=== PATIENT | female | born 1985 | race Caucasian/White ===

== ENCOUNTER 2018-10-22 18:17 | Inpatient (IN) ==
[2018-10-22 16:54] LABS: Basophils % 0.4 %; Eosinophils # 0.1 K/mcL (0.0-0.6); Eosinophils % 1.1 %; Hematocrit 34.8 % (35.3-44.9); Hemoglobin 11.2 g/dL (11.5-15.4); Immature Granulocytes % 0.9 % (0-4); Lymphocytes # 2.5 K/mcL (0.6-4.6); Lymphocytes % 22.6 %; Mean Corpuscular HGB Conc 32.2 g/dL (31.6-35.5); Mean Corpuscular Hemoglobin 28.2 pg (28.0-33.3); Mean Corpuscular Volume 87.7 fL (83.0-100.0); Mean Platelet Volume 11.3 fL (9.4-12.4); Monocytes # 0.9 K/mcL (0.0-1.3); Monocytes % 7.7 %; Neutrophils # 7.6 K/mcL (1.6-8.9); Nucleated Red Blood Cells 0.4 /100 WBC (0); Platelet Count 277 K/mcL (140-400); Red Blood Count 3.97 M/mcL (3.82-4.97); Red Cell Distribution Width 13.1 % (11.5-14.5); Segmented Neutrophils % 67.3 %
[2018-10-22 16:58] LABS: Amphetamine Screen,Urine Negative ng/mL (Cutoff=1000); Barbiturate Screen,Urine Negative ng/mL (Cutoff=200); Benzodiazepines Screen,Urine Negative ng/mL (Cutoff=200); Cannabinoid Screen,Urine Negative ng/mL (Cutoff = 50); Cocaine Screen,Urine Negative ng/mL (Cutoff= 300); Opiate Screen,Urine Negative ng/mL (Cutoff=300); Phencyclidine Screen,Urine Negative ng/mL (Cutoff=25)
[2018-10-22 17:16] LABS: Alanine Aminotransferase 9 Units/L (7-52); Aspartate Amino Transferase 14 Units/L (13-39); BUN/Creatinine Ratio 16 (6-26); Blood Urea Nitrogen 12 mg/dL (6-20); Lactate Dehydrogenase 148 Units/L (140-271); Uric Acid 6.5 mg/dL (2.3-7.6); eGFR For Non-African Americans > 60 (> 60)
--- NOTE | 2018-10-22 17:59 | OB/GYN History & Physical ---
Date of Encounter: 10/22/18 Time of Encounter: 17:52 Assessment and Plan (1) 36 weeks gestation of Current visit: Yes Status: Acute Pre-Eclampsia with severe features noted. Elevated blood pressures ranging from 140's/80-160's/ high 90's Admit for IOL secondary to Pre-E GBS negative Cytotec Magnesium infusion Consider intracervical meadows Consider AROM/pitocin for labor augmentation Patient may have nubain/epidural upon request Anticipate vaginal delivery Hep B not located in labs; will order POC per consult with Dr Plummer (2) Pre-eclampsia Current visit: Yes Status: Acute Qualifiers: Trimester: third trimester Qualified Code(s): O14.93 - Unspecified pre- eclampsia, third trimester History of Present Illness Chief complaint: IOL secondary to pre-e with severe features HPI: Ms. Garcia is a 33 year old at 36 weeks and 1 day that presents to labor and delivery triage for PIH evaluation after having a random UPC ratio completed by Dr Govea which resulted at 0.67 today. She has a history of pre-e with her previous and delivered at 37 weeks. This was complicated by a low-lying placenta which has resolved, and early IUGR. Her last ultrasound 35 weeks and 1 day showed a EFW of 4#7oz (2017grams) in the14.8%. SARAH was 14.5 with a BPP of 8/8. She was taking a daily baby aspirin. She states positive movement. She denies headache, visual disturbances, epigastric pain, leaking of fluid, vaginal bleeding/discharge, and cramping/contractions. Her reflexes are 3-4+ with no clonus and she does have periorbital edema which she states started this morning. Labs: GBS negative Blood type A+ RPR NR Rubella positive Varicella positive HIV NR Past Med Surg Social Fam HX - Past Medical History Medical history: no medical history Psychiatric history: no psych history - Past Surgical History Surgical History: cholecystectomy Additional surgical history: right ankle - Social History Smoking Status: Never smoker Alcohol use: none Drug use: none - Family History Mother Name: ancelmo Nguyễn Hx Family Cardiac Disorders: No Hx Family Respiratory Disorders: No Hx Family Cancer: No Hx Family GI Disorders: No Hx Family Genitourinary Disorders: No Hx Family Endocrine Disorder: No Hx Family Musculoskeletal Disorders: No Hx Family Neuromuscular Disorders: No Hx Family Neurologic Disorders: No Hx Family HEENT Disorders: No Hx Family Autoimmune Disorders: Yes (lupus) Hx Family Reproductive Disorders: No Hx Family Psychosocial Disorders: No Hx Family Medical Disorders: No Obstetrical History - Pregnancies : 2 Para: 1 Term: 1 : 0 Ab's: 0 Livin Medications and Allergies Aspirin [Adult Aspirin Regimen] 81 mg PO DAILY 10/22/18 [History] Ferrous Sulfate [Iron] 325 mg PO BID 10/22/18 [History] Pnv Cmb#21/Iron/Folic Acid [ Complete Caplet] 1 each PO DAILY 10/22/18 [History] Allergy/AdvReac Type Severity Reaction Status Date / Time No Known Allergies Allergy Verified 10/22/18 16:24 Review of System OB All systems PM: reviewed and no additional remarkable complaints except as stated Exam - Constitutional Constitutional: well developed, well nourished, average body habitus, mild distress - HEENT HEENT: Normocephaly, Mucus Membranes Moist, Other (periorbital edema noted) - Neck Neck exam: full ROM, normal inspection - Lungs Respiratory exam: CTAB - Cardiovascular Cardiovascular exam: RRR, +S1, +S2 - Abdomen Abdomen: Present: bowel sounds normal, gravid, non tender - Extremities Extremities exam: normal capillary refill, normal inspection, radial pulses palpable and symmetrical Deep Tendon Reflex Grade: 3+ Normal But Brisk - Vulva Vulva: bilateral: normal - Vagina Vagina: Present: normal moisture - Cervix Dilation: 2 Effacement: 80 Station: -2 - Uterus Uterus exam: Present: normal size, normal contour - Anus/Rectum Anus/Rectum: Present: normal perianal skin Results Result Diagrams: 10/22/18 16:20 10/22/18 16:20 Abnormal lab results WBC 11.2 K/mcL (4.3-11.1) H 10/22/18 16:20 Hgb 11.2 g/dL (11.5-15.4) L 10/22/18 16:20 Hct 34.8 % (35.3-44.9) L 10/22/18 16:20 Nucleated RBCs/100 WBC 0.4 /100 WBC (0) H 10/22/18 16:20 All other labs normal. - VTE Reasons for not Prescribing Prophylaxis: Treatment not Indicated - Low risk for VTE
[~2018-10-22 18:17] MED LIST: *HR* Nalbuphine 10 MG/ML AMPUL IVP PRN; Calcium Gluconate 1,000 MG/10 ML VIAL IVPB PRN; Famotidine 20 MG/2 ML VIAL IVP PRN; Metoclopramide 10 MG/2 ML VIAL IVP PRN; Naloxone 0.4 MG/ML INJ IVP PRN; Ondansetron 4 MG/2 ML VIAL IVP PRN; Ringers Solution, Lactated 1,000 ML IVC SCH; Ringers Solution, Lactated 1,000 ML ONE; miSOPROStol 25 MCG TABLET PO PRN
[2018-10-22] MEDS: Magnesium Sulfate 20 gm/500mL 20 GM/500 ML IV.SOLN IVC SCH (18:37)
--- NOTE | 2018-10-22 19:25 | Anesthesia Evaluation PreOp ---
Date of Encounter: 10/22/18 Time of Encounter: 19:15 - Past History Planned Operation: MARC Cardiac History: Other (Pre-eclampsia) Pulmonary History: Denies Any Significant HX MANAGER RFID History: Denies Any Significant HX Other Medical History: Denies Any Significant HX Anesthesia History: No Prior Anesthetic Complications, Past Anesthesia (Lap cholecystectomy, wisdom teeth extraction, previous epidural) : Yes Alcohol Use: none Drug use: none Medications and Allergies Aspirin [Adult Aspirin Regimen] 81 mg PO DAILY 10/22/18 [History] Ferrous Sulfate [Iron] 325 mg PO BID 10/22/18 [History] Pnv Cmb#21/Iron/Folic Acid [ Complete Caplet] 1 each PO DAILY 10/22/18 [History] Allergy/AdvReac Type Severity Reaction Status Date / Time No Known Allergies Allergy Verified 10/22/18 16:24 - Meds/Allergy Pre-op Review Medications Reviewed: Yes Allergies Reviewed: Yes Beta Blockers on Current Med List: No Anesthesia Results - Labs 10/22/18 16:20 10/22/18 16:20 Anesthesia Exam BP 128/72 P 64 R 16 T 98.2 Height: 5'7" Weight: 72.4kg NPO (# of Hours): 7 hr solids Pain Scale: 2 Pain Scale Used: Numeric (1 - 10) - HEENT Pupil (Motor): Pupils equal Mallampati: II Teeth: Normal Oral Opening: Greater than 3 - MANAGER RFID LOC: Oriented MANAGER RFID Motor: Normal RUE, Normal LUE, Normal RLE, Normal LLE, Normal Face MANAGER RFID Sensory: Normal: RUE, LUE, RLE, LLE, Face - Cardiac Rhythm: Regular Murmur: None JVD: No Carotid Bruit: No - Pulmonary Breath Sounds: bilateral Clear Respiratory Effort: Symmetrical Anesthesia Assess/Plan ASA Score: 2 Level of consciousness: Cooperative Anesthetic Plan: Epidural Autologous Blood: No Monitoring Plan: Standard Monitors Recovery Plan: Other
--- NOTE | 2018-10-22 20:41 | OB Labor Progress Note ---
Date of Encounter: 10/22/18 Time of Encounter: 20:38 Labor Progress Note - Subjective Subjective: Patient states she is beginning to feel the magnesium and is having hot flashes. She states contractions are tolerable. - Vital Signs Vital Signs: VSS - Cervix Cervix: 4/80/-2 - Heart Tones Heart Tones: 130 baseline; cat 1 tracing. - [place]: contractions every 3-8 minutes - Interventions Interventions: attempted to place intracervical meadows. Very soft cervix. Once cervix was stabilized it was noted to be 4 cm dilated; intracervical meadows not placed. - Plan Physician notified: No Plan: Continue routine labor management GBS negative Pitocin vs cytotec; will reevaluate in 2 hours Consider AROM Patient may have nubain/epidural upon request Anticipate vaginal delivery Magnesium infusing at 2g/hr; patient and fetus tolerating well Blood pressures stable. POC per consult with Dr Plummer
[2018-10-22] MEDS ORDERED: EPHEDrine 50 MG/ML VIAL IVP PRN (21:20)
[2018-10-22] MEDS ORDERED: *HR* FentaNYL (PF) 100 MCG/2 ML VIAL EP ONE (21:20)
[2018-10-22] MEDS ORDERED: Ondansetron 4 MG/2 ML VIAL IVP PRN (21:20)
[2018-10-22] MEDS ORDERED: *HR* Ropivacaine/PF 0.2% 20 ML VIAL EP ONE (21:20)
[2018-10-22] MEDS ORDERED: Naloxone 0.4 MG/ML INJ IVP PRN (21:20)
[2018-10-22] MEDS ORDERED: Epidural Premix (fent/bupiv) 110 ML EP SCH (21:30)
[2018-10-23] MEDS: Oxytocin 20 units/ LR 1000 mL 20 UNIT/1,000 ML BAG IVC SCH ×2 (03:26→11:43)
[2018-10-23] MEDS ORDERED: *HR* FentaNYL (PF) 100 MCG/2 ML VIAL ONE ×2 (03:48→12:19)
[2018-10-23] MEDS ORDERED: Lidocaine -MPF 1% 5 ML AMPUL ONE (03:49)
--- NOTE | 2018-10-23 04:03 | OB Labor Progress Note ---
Date of Encounter: 10/23/18 Time of Encounter: 04:00 Labor Progress Note - Subjective Subjective: Patient SROM'd at 0300. She is uncomfortable and requesting an epidural. - Vital Signs Vital Signs: VSS - Cervix Cervix: 6/80/-1 - Heart Tones Heart Tones: 125 - [place]: Contractions every 2-4 minutes - Plan Physician notified: No Plan: Continue routine labor managment GBS negative Pitocin; titrate as needed for adequate contractions Magnesium currently infusing at 2gm/hr Anticipate vaginal delivery POC per consult with Dr Plummer
[2018-10-23] MEDS ORDERED: EPHEDrine 50 MG/ML VIAL ONE (04:29)
--- NOTE | 2018-10-23 04:42 | Anesthesia Procedures ---
Date of Encounter: 10/23/18 Time of Encounter: 03:55 Procedures: Anesthesia - Epidural/Spinal Patient ID/Chart reviewed: Yes Patient examined: Yes OB Eval: Gestational age: 37 OB Eval: : 2 OB Eval: Hx Para: 1 OB Eval: Contractions: Non-stressed pattern Consent Obtained: Yes Supplemental Oxygen: None/Room Air Site Prep: Aseptic Technique, Sterile prep and drape, Povidone-Iodine 1% Patient position: upright Local Anesthetic: Lidocaine 1% Amount of Local Anesthetic used: 3 Touhy Needle Gauge: 18 Touhy Needle Depth (cm): 5 Catheter Depth at Skin (cm): 14 Test Dose (1.5% Lido + Epi): Volume given (mls): 3 Test Dose Result: Negative Loading Dose: Fentanyl (mcg): 100 Loading Dose: Other: Ropivicaine 0.2% Loading Dose Administered: Thru Catheter Infusion Med: 0.125% Bupivacaine w/ 2 mcg/ml Fentanyl Infusion Rate (mls/hr): [address]: Tegaderm, Tape Interspace Used: L3-L4 Loss of Resistance (MANUEL): Yes Blood: No CSF: No Paresthesia: No Procedure: MARC placed 1st pass in upright position. Negative heme, negative CSF, positive MANUEL. VSS throughout and pt stated comfort Vitals + FHT's: 0355 BP 172/95 P 77 R 16 0425 BP 105/52 P 70 R 16 FHT 120s
--- NOTE | 2018-10-23 11:41 | OB/GYN Procedure Note ---
Addendum entered and electronically signed by Bernarda Mcrae 10/23/18 11:59: Called to bedside by CNM for retained placenta. The patient had received 400mcg of PO Cytotec @ 1117 in addition to the IV oxytocin per protocol. I attempted to deliver the placenta in the room but was not successful. We discussed the likelihood of success with a dilation & curettage compared to a bedside manual extraction, followed by a D&C if unsuccessful, & the patient opted to go to the OR for the D&C. She requested we perform the D&C after a bolus of her epidural as she did not want to be put to sleep unless absolutely necessary. I told her I was fine attempting the D&C while she was conscious but that we may need to have her put to sleep if she couldn't tolerate the procedure. I also requested Anesthesia's input to discern their comfort level with that plan. We reviewed the risks, benefits & alternatives at bedside, prior to going to the OR. Risks included, but were not limited to, bleeding, infection, uterine perforation, injury to surrounding organs & neurovascular bundles, the need for further interventions/procedures, up to & including, hysterectomy. Questions were answered and the patient consented to the procedure. Original Note: Delivery - Delivery Date: 10/23/18 Provider: Lydia Smith Intrapartum events: meconium Delivery induction: misoprostol Delivery augmentation: pitocin Delivery monitor: external FHT, external uterine Anesthesia: epidural Quantitated Blood Loss: 500 - Infant (s) A Infant Delivery Date: 10/23/18 Delivery Time: 10:48 Presentation: vertex Position: MICHAEL Route of delivery: Gender: Female Viability: Viable Pounds: 4 Ounces: 11 Weight Gram: 2.12 kg at 1 minute: 8 at 5 mins: 9 Shoulder Dystocia: not encountered Specimens collected: cord blood Placenta: spontaneous Cord: nuchal cord (body, waist, and leg), 3 umbilical vessels, delivered through nuchal - Repair Episiotomy: none Laceration Description: None - Complications Delivery complications: retained placenta (Dr. Mcrae made aware - please see her note) Delivery comments: This is a 33 year old G2 now P 2 who was admitted for induction of labor secondary to severe preeclampsia. She progressed with Cytotec induction and Pitocin augmentation to the second stage of labor. She pushed for 15 minutes. Nursery and respiratory therapy were called to bedside secondary to thick meconium. She delivered a viable, female , "Meg RODRIGUEZ over an intact perineum. A nuchal cord was identified. The cord was wrapped around the 's left shoulder as well as her waist and right leg. She was delivered through. A shoulder dystocia was not encountered. The was placed on the maternal abdomen and allowed to transition spontaneously. The cord was double clamped by woodworking machine feeder after pulsations ceased and cut by FOB. scores were 8 at 1 minute and 9 at 5 minutes. The infant weighed 4 lbs. 11 oz. (2120 g). The placented did not deliver spontaneously. 400mcg cytotec PO given and Dr. Mcrae notified after 30 minutes and to bedside. Patient was given options for placental removal. EBL was 500 mL. Mom and baby are skin to skin following delivery. Care turned over to Dr. Mcrae for placental removal. - Disposition Mom disposition: to OR disposition: taken to nursery
[2018-10-23] MEDS ORDERED: *HR* Midazolam HCl 2 MG/2 ML VIAL ONE (12:19)
[2018-10-23] MEDS ORDERED: Lidocaine/EPI 1:200k 2% PF 20 ML VIAL ONE (12:39)
[2018-10-23] MEDS: Magnesium Sulfate 20 gm/500mL 20 GM/500 ML IV.SOLN IVC SCH (14:30)
[2018-10-23] MEDS ORDERED: miSOPROStol 100 MCG TABLET PO ONE (14:35)
[2018-10-23] MEDS ORDERED: Acetaminophen 325 MG TABLET PO PRN (15:33)
[2018-10-23] MEDS ORDERED: Benzocaine/Menthol 56 GM AEROSOL SPRAY TP PRN (15:33)
[2018-10-23] MEDS ORDERED: Oxytocin 20 units/ LR 1000 mL 20 UNIT/1,000 ML BAG IVC SCH (15:33)
[2018-10-23] MEDS ORDERED: *HR* HYDROcodone/Acet 5/325 mg TABLET PO PRN (15:33)
[2018-10-23] MEDS ORDERED: Magnesium Sulfate 20 gm/500mL 20 GM/500 ML IV.SOLN IVC SCH (15:33)
[2018-10-23] MEDS ORDERED: Ibuprofen 600 MG TABLET PO PRN (15:33)
[2018-10-23 19:10] LABS: Immature Granulocytes % 0.7 % (0-4); Lymphocytes % 5.1 %; Mean Corpuscular Volume 87.7 fL (83.0-100.0); Monocytes % 3.7 %
[2018-10-23 19:11] LABS: Basophils % 0.1 %; Hematocrit 23.6 % (35.3-44.9); Hemoglobin 7.8 g/dL (11.5-15.4); Lymphocytes # 1.4 K/mcL (0.6-4.6); Mean Corpuscular HGB Conc 33.1 g/dL (31.6-35.5); Platelet Count 228 K/mcL (140-400); Red Blood Count 2.69 M/mcL (3.82-4.97); Red Cell Distribution Width 13.3 % (11.5-14.5); Segmented Neutrophils % 90.4 %
[2018-10-23 19:13] LABS: Neutrophils # 25.5 K/mcL (1.6-8.9)
[2018-10-23 19:46] LABS: Platelet Estimate Normal (Normal); Reactive Lymphocytes Present (Not Present)
--- NOTE | 2018-10-23 22:50 | Operative Note ---
Date of procedure: 10/23/18 Pre-op diagnosis: Retained Placenta Post-op diagnosis: same Procedure: Dilation and curettage with manual extraction Implants: None Complications: None Anesthesia: epidural, IV sedation Surgeon: Bernarda Mcrae Was there an assistant superintendent present: No Estimated blood loss (cc): 400 IV fluids (cc): 300 Urine output (cc): 100 Specimen: Placenta, sent to pathology. Condition: stable Disposition: floor Procedure in Detail: Operation Performed Manual Extraction of Placenta, Dilation and Curettage Indication for Surgery 33yo @ 36.2wga presented to L&D for induction of labor due to Pre- eclampsia with severe features. She underwent an uncomplicated vaginal delivery at 1048. Delivering a viable female . I was called to the patient's room to evaluate a retained placenta after failure to deliver 30 minutes. The patient had received 400 g of Cytotec at 1117. She was offered a manual extraction at bedside but declined. She opted for surgical intervention in the OR. She specifically requested conscious sedation over general if possible. The patient was informed of the risks and benefits of manual placenta extraction & dilation and curettage. Risks included but were not limited to bleeding, infection, injury to the vulva, vagina or cervix and uterine perforation, the need for further procedures, up to and including hysterectomy. The patient expressed understanding of the risks involved. All questions were answered and the patient consented to the procedure. Preoperative Diagnosis 1. Retained Placenta Postoperative Diagnosis Same Surgeon Bernarda Mcrae D.O. Manufacturing Engineer(s) None Anesthesia IV sedation and epidural bolus Estimated Blood Loss 400 mL Urine Output 100 mL of clear yellow urine IV Fluids 300 mL crystalloid Complications None Specimen Placenta Technique The patient was taken to the operating room where a timeout was performed to confirm correct patient and correct procedure. The patient was given IV sedation and an epidural bolus before positioning on the operating table in the dorsal lithotomy position with the legs supported using stirrups. All pressure points were padded and a warm blanket was placed to maintain control of core body temperature. The patient was then prepped and draped in the usual sterile fashion. A straight catheter was inserted into the bladder and 100 mL of urine was obtained. Her placenta was grasped by hand, sheered from the posterior aspect of the endometrial cavity & removed. Pieces of the placenta were visibly absent upon inspection. A weighted speculum was then inserted into the vagina. The anterior lip of the cervix was visualized and grasped with a ring forceps. A sharp curetting was performed using the GoodApril curette. This was done by starting at the 12 o'clock position and rotated a total of 360 degrees in order to cover all surfaces. Endometrial & placental tissue was obtained and sent to Pathology for testing. Following the curetting, the patient continued to ooze. 250 micrograms of Hemabate was given. Good hemostasis was obtained. The ring forceps was removed from the anterior lip of the cervix and the cervix was noted to be hemostatic. The weighted speculum was then removed from the vagina. At the end of the procedure, all needle sponge and instrument counts were noted to be correct 2. The patient tolerated the procedure well and was transferred to the recovery room in stable condition.
[2018-10-24 06:15] LABS: Basophils % 0.1 %; Eosinophils # 0.1 K/mcL (0.0-0.6); Eosinophils % 0.3 %; Hematocrit 20.4 % (35.3-44.9); Hemoglobin 6.6 g/dL (11.5-15.4); Lymphocytes # 2.1 K/mcL (0.6-4.6); Lymphocytes % 10.9 %; Mean Corpuscular HGB Conc 32.4 g/dL (31.6-35.5); Mean Corpuscular Hemoglobin 28.3 pg (28.0-33.3); Mean Corpuscular Volume 87.6 fL (83.0-100.0); Mean Platelet Volume 10.7 fL (9.4-12.4); Monocytes # 1.3 K/mcL (0.0-1.3); Monocytes % 6.8 %; Neutrophils # 15.3 K/mcL (1.6-8.9); Platelet Count 191 K/mcL (140-400); Red Blood Count 2.33 M/mcL (3.82-4.97); Red Cell Distribution Width 13.3 % (11.5-14.5); Segmented Neutrophils % 80.9 %
[2018-10-24 06:33] LABS: Alanine Aminotransferase 35 Units/L (7-52); Aspartate Amino Transferase 50 Units/L (13-39); BUN/Creatinine Ratio 12 (6-26); Blood Urea Nitrogen 8 mg/dL (6-20); Lactate Dehydrogenase 295 Units/L (140-271); Uric Acid 5.6 mg/dL (2.3-7.6); eGFR For Non-African Americans > 60 (> 60)
[2018-10-24] MEDS ORDERED: 0.9 % Sodium Chloride 500 ML ONE (07:50)
[2018-10-24] MEDS: Prenatal Vit/FA 1 EACH TABLET PO SCH (08:18)
--- NOTE | 2018-10-24 12:29 | OB/GYN Progress Note ---
Date of Encounter: 10/24/18 Time of Encounter: 12:27 - Assessment and Plan (1) Status post vaginal delivery Current Visit: Yes Status: Acute Discussed safe spacing and control options. Pt states her plans to get a vasectomy. Anticipate discharge home tomorrow. (2) Pre-eclampsia Current Visit: Yes Status: Acute Magnesium was turned off just before 11am. Since Mag off, patient reports feeling much better. AM Hgb was 6.6, patient currently receiving 2nd unit of PRBCs. Denies dizziness, n/v, SOB, or chest pain. Reflexes normal. BPs normotensive. Repeat PIH labs in morning. Plan discussed with Dr. Whipple. Anticipate discharge home tomorrow. Qualifiers: Trimester: third trimester Qualified Code(s): O14.93 - Unspecified pre- eclampsia, third trimester (3) Breast feeding status of mother Current Visit: Yes Status: Acute Patient plans to pump and bottle feed. Now that Mag is off and she is feeling better, she plans to start pumping today. (4) Anemia Current Visit: Yes Status: Acute Qualifiers: Anemia type: unspecified type Qualified Code(s): D64.9 - Anemia, unspecified Subjective - Subjective Interval history: Pt resting comfortably in bed holding . Pt reports pain managed by Ibuprofen. Patient reports: appetite normal, voiding normally, pain well controlled : doing well, bottle feeding Objective - Latest Vital Signs Latest vital signs: Vital Signs Temp Pulse Pulse Resp BP Pulse Ox 10/24/18 11:30 97.8 F 80 16 131/85 96 10/24/18 11:15 97.8 F 80 16 134/82 10/24/18 10:45 97.8 F 79 14 148/87 96 10/24/18 10:07 74 14 130/79 10/24/18 09:00 86 16 125/74 10/24/18 08:29 97.9 F 84 16 122/81 97 10/24/18 08:00 72 16 137/88 10/24/18 05:45 97.6 F 76 14 124/77 96 10/24/18 04:45 97.9 F 85 14 121/77 97 10/24/18 03:54 98.1 F 74 16 125/76 97 10/24/18 02:57 97.6 F 82 14 122/76 97 10/24/18 01:45 97.8 F 88 14 126/82 98 10/24/18 00:30 97.9 F 89 14 124/78 97 10/23/18 23:30 97.6 F 90 14 132/85 98 10/23/18 21:30 98.4 F 96 14 124/83 97 10/23/18 20:15 97.9 F 85 14 117/68 95 10/23/18 18:18 98.2 F 80 80 14 136/88 100 10/23/18 17:15 98.0 F 84 84 14 125/83 100 10/23/18 16:15 98.0 F 72 14 128/87 99 10/23/18 15:15 97.1 F L 77 14 128/85 99 Intake and Output 10/23/18 10/24/18 10/24/18 23:59 07:59 15:59 Intake Total 300 / 300 300 / 300 Output Total 850 / 850 850 / 850 1900 / 1900 Balance -850 / -850 -550 / -550 -1600 / -1600 Intake: Oral 300 / 300 Blood Product 300 / 300 Rbcs Leuko Poor As-1 Unit 0 / 0 [id number] Rbcs Leuko Poor As-1 Unit 300 / 300 [id number] Output: Urine 850 / 850 850 / 850 1900 / 1900 - Exam Lungs: bilateral: normal Chest: Normal S1, Normal S2 Extremities: Present: edema (1+ nonpitting of hands and feet ). Absent: tenderness Abdomen: Present: soft. Absent: tenderness Uterus: Present: firm Uterus Position: 2 Fingers Below Umbilicus, Midline - Labs Labs: Laboratory Results - last 24 hr 10/22/18 10/23/18 10/24/18 16:20 18:45 06:00 WBC 28.2 H D 18.9 H RBC 2.69 L 2.33 L Hgb 7.8 L D 6.6 L Hct 23.6 L 20.4 L MCV 87.7 87.6 MCH 29.0 28.3 MCHC 33.1 32.4 RDW 13.3 13.3 Plt Count 228 191 MPV 11.0 10.7 Immature Gran % 0.7 1.0 Seg Neutrophils % 90.4 80.9 Lymphocytes % 5.1 10.9 Monocytes % 3.7 6.8 Eosinophils % 0.0 0.3 Basophils % 0.1 0.1 Neutrophils # 25.5 H 15.3 H Lymphocytes # 1.4 2.1 Monocytes # 1.0 1.3 Eosinophils # 0.0 0.1 Basophils # 0.0 0.0 Reactive Lymphocytes Present A Platelet Estimate Normal BUN Creatinine Est GFR ( Amer) Est GFR (Non-Af Amer) BUN/Creatinine Ratio Uric Acid AST ALT Lactate Dehydrogenase Blood Type A POSITIVE Antibody Screen NEGATIVE Crossmatch See Detail 10/24/18 06:00 WBC RBC Hgb Hct MCV MCH MCHC RDW Plt Count MPV Immature Gran % Seg Neutrophils % Lymphocytes % Monocytes % Eosinophils % Basophils % Neutrophils # Lymphocytes # Monocytes # Eosinophils # Basophils # Reactive Lymphocytes Platelet Estimate BUN 8 Creatinine 0.69 Est GFR ( Amer) > 60 Est GFR (Non-Af Amer) > 60 BUN/Creatinine Ratio 12 Uric Acid 5.6 AST 50 H ALT 35 Lactate Dehydrogenase 295 H Blood Type Antibody Screen Crossmatch
[2018-10-25] MEDS: Prenatal Vit/FA 1 EACH TABLET PO SCH (09:41)
[2018-10-25 09:54] LABS: Alanine Aminotransferase 156 Units/L (7-52); Aspartate Amino Transferase 122 Units/L (13-39); BUN/Creatinine Ratio 15 (6-26); Blood Urea Nitrogen 9 mg/dL (6-20); Lactate Dehydrogenase 466 Units/L (140-271); Uric Acid 4.9 mg/dL (2.3-7.6); eGFR For Non-African Americans > 60 (> 60)
[2018-10-25 10:00] LABS: Basophils # 0.1 K/mcL (0.0-0.2); Basophils % 0.4 %; Eosinophils % 1.2 %; Hematocrit 26.9 % (35.3-44.9); Hemoglobin 8.7 g/dL (11.5-15.4); Immature Granulocytes % 3.3 % (0-4); Immature Platelets 6.3 % (1.1-6.1); Lymphocytes % 16.4 %; Mean Corpuscular HGB Conc 32.3 g/dL (31.6-35.5); Mean Corpuscular Hemoglobin 28.9 pg (28.0-33.3); Mean Corpuscular Volume 89.4 fL (83.0-100.0); Mean Platelet Volume 10.5 fL (9.4-12.4); Monocytes # 0.9 K/mcL (0.0-1.3); Monocytes % 7.1 %; Nucleated Red Blood Cells 0.5 /100 WBC (0); Red Blood Count 3.01 M/mcL (3.82-4.97); Red Cell Distribution Width 13.8 % (11.5-14.5); Segmented Neutrophils % 71.6 %
[2018-10-25 10:28] LABS: Eosinophils # 0.2 K/mcL (0.0-0.6)
[2018-10-25 10:29] LABS: Neutrophils # 8.7 K/mcL (1.6-8.9); Platelet Count 90 K/mcL (140-400)
[2018-10-25] MEDS ORDERED: 0.9 % Sodium Chloride 1,000 ML IVC ONE (10:55)
[2018-10-25 18:25] LABS: Basophils % 0.4 %; Immature Platelets 5.4 % (1.1-6.1); Segmented Neutrophils % 69.1 %
[2018-10-25 18:31] LABS: INR 0.9; Prothrombin Time 9.7 Seconds (9.4-12.1)
[2018-10-25 18:38] LABS: Basophils # 0.1 K/mcL (0.0-0.2); Eosinophils # 0.2 K/mcL (0.0-0.6); Eosinophils % 1.2 %; Hematocrit 27.4 % (35.3-44.9); Hemoglobin 9.1 g/dL (11.5-15.4); Immature Granulocytes % 2.8 % (0-4); Lymphocytes # 2.7 K/mcL (0.6-4.6); Lymphocytes % 19.4 %; Mean Corpuscular HGB Conc 33.2 g/dL (31.6-35.5); Mean Corpuscular Hemoglobin 29.4 pg (28.0-33.3); Mean Corpuscular Volume 88.4 fL (83.0-100.0); Mean Platelet Volume 10.5 fL (9.4-12.4); Monocytes % 7.1 %; Neutrophils # 9.6 K/mcL (1.6-8.9); Nucleated Red Blood Cells 0.4 /100 WBC (0); Platelet Count 101 K/mcL (140-400); Red Cell Distribution Width 14.1 % (11.5-14.5)
[2018-10-25 18:42] LABS: Alanine Aminotransferase 136 Units/L (7-52); Albumin/Globulin Ratio 1.1 (1.1-2.2); Alkaline Phosphatase 91 Units/L (34-104); Aspartate Amino Transferase 78 Units/L (13-39); BUN/Creatinine Ratio 17 (6-26); Bilirubin,Indirect 0.2 mg/dL (0.0-1.2); Bilirubin,Total 0.2 mg/dL (0.3-1.0); Blood Urea Nitrogen 11 mg/dL (6-20); Calcium 8.5 mg/dL (8.6-10.3); Carbon Dioxide 24 mEq/L (23-29); Chloride 107 mEq/L (98-107); Globulin 2.8 g/dL (2.4-3.5); Glucose 101 mg/dL (70-105); Osmolality,Calculated 282 (280-300); Sodium 136 mEq/L (136-145); Total Protein 5.8 g/dL (6.4-8.9); eGFR For Non-African Americans > 60 (> 60)
[2018-10-25 20:22] LABS: Platelet Estimate Decreased (Normal); Reactive Lymphocytes Present (Not Present)
[2018-10-26 07:03] LABS: Basophils # 0.1 K/mcL (0.0-0.2); Basophils % 0.7 %; Eosinophils # 0.2 K/mcL (0.0-0.6); Eosinophils % 1.5 %; Hematocrit 26.1 % (35.3-44.9); Hemoglobin 8.5 g/dL (11.5-15.4); Immature Granulocytes % 4.3 % (0-4); Lymphocytes # 2.5 K/mcL (0.6-4.6); Lymphocytes % 19.1 %; Mean Corpuscular HGB Conc 32.6 g/dL (31.6-35.5); Mean Corpuscular Hemoglobin 29.1 pg (28.0-33.3); Mean Corpuscular Volume 89.4 fL (83.0-100.0); Mean Platelet Volume 10.8 fL (9.4-12.4); Monocytes # 0.8 K/mcL (0.0-1.3); Monocytes % 6.4 %; Neutrophils # 8.9 K/mcL (1.6-8.9); Nucleated Red Blood Cells 0.8 /100 WBC (0); Platelet Count 110 K/mcL (140-400); Red Blood Count 2.92 M/mcL (3.82-4.97); Red Cell Distribution Width 13.8 % (11.5-14.5)
[2018-10-26 07:21] LABS: Alanine Aminotransferase 109 Units/L (7-52); Aspartate Amino Transferase 51 Units/L (13-39); BUN/Creatinine Ratio 15 (6-26); Blood Urea Nitrogen 10 mg/dL (6-20); Lactate Dehydrogenase 248 Units/L (140-271); Uric Acid 5.9 mg/dL (2.3-7.6); eGFR For Non-African Americans > 60 (> 60)
[2018-10-26] MEDS: Prenatal Vit/FA 1 EACH TABLET PO SCH (08:27)
[2018-10-26 12:37] VITALS: BP 138/93
--- NOTE | 2018-10-26 12:56 | Discharge Summary ---
Date of Encounter: 10/26/18 Time of Encounter: 12:54 - Discharge Diagnosis (1) Anemia Priority: Primary Status: Acute Comments: will discharge home on BID iron Qualifiers: Anemia type: unspecified type Qualified Code(s): D64.9 - Anemia, unspecified (2) Pre-eclampsia Priority: Primary Status: Acute Comments: b/p stable, denies PIH symptoms, discussed PP PIH symptoms and when to seek care Qualifiers: Trimester: third trimester Qualified Code(s): O14.93 - Unspecified pre- eclampsia, third trimester (3) Status post vaginal delivery Priority: Primary Status: Acute Comments: Stable in PP, pt states feels well, pain well managed on po pain medication, denies dizziness, desires discharge. - Discharge Medications Prescriptions: Ibuprofen [Motrin] 600 mg PO Q6HR PRN #60 tablet PRN Reason: Cramping Docusate [Colace] 100 mg PO BID #30 capsule Labetalol [Trandate] 100 mg PO DAILY #30 tablet Home Medications: Ferrous Sulfate [Iron] 325 mg PO BID 10/22/18 [History] Pnv Cmb#21/Iron/Folic Acid [ Complete Caplet] 1 each PO DAILY 10/22/18 [History] Acetaminophen [Tylenol] 650 mg PO Q6HR PRN tablet 10/26/18 [Rx] Benzocaine/Menthol Wellpinit [Dermoplast Wellpinit] 1 appl TP QID PRN aerosol 10/26/18 [Rx] Docusate [Colace] 100 mg PO BID #30 capsule 10/26/18 [Rx] Ferrous Sulfate 325 mg PO BIDWM tablet 10/26/18 [Rx] Ibuprofen [Motrin] 600 mg PO Q6HR PRN #60 tablet 10/26/18 [Rx] Labetalol [Trandate] 100 mg PO DAILY #30 tablet 10/26/18 [Rx] Allergies/Adverse Reactions: Allergy/AdvReac Type Severity Reaction Status Date / Time No Known Allergies Allergy Verified 10/22/18 16:24 Data Procedures and tests throughout hospitalization: Laboratory Tests 10/22/18 10/22/18 10/22/18 16:20 16:20 16:20 WBC 11.2 H RBC 3.97 Hgb 11.2 L Hct 34.8 L MCV 87.7 MCH 28.2 MCHC 32.2 RDW 13.1 Plt Count 277 MPV 11.3 Immature Gran % 0.9 Seg Neutrophils % 67.3 Lymphocytes % 22.6 Monocytes % 7.7 Eosinophils % 1.1 Basophils % 0.4 Neutrophils # 7.6 Lymphocytes # 2.5 Monocytes # 0.9 Eosinophils # 0.1 Basophils # 0.0 Nucleated RBCs/100 WBC 0.4 H Reactive Lymphocytes Platelet Estimate Immature Plt Fraction PT INR APTT Fibrinogen Sodium Potassium Chloride Carbon Dioxide BUN 12 Creatinine 0.75 Est GFR ( Amer) > 60 Est GFR (Non-Af Amer) > 60 BUN/Creatinine Ratio 16 Glucose Calculated Osmolality Uric Acid 6.5 Calcium Total Bilirubin Direct Bilirubin Indirect Bilirubin AST 14 ALT 9 Alkaline Phosphatase Lactate Dehydrogenase 148 Serum Total Protein Albumin Globulin Albumin/Globulin Ratio Urine Opiates Screen Negative Ur Barbiturates Screen Negative Ur Phencyclidine Scrn Negative Ur Amphetamines Screen Negative U Benzodiazepines Scrn Negative Urine Cocaine Screen Negative U Marijuana (THC) Screen Negative Ur Drug Screen Interp See Below Hep Bs Antigen Blood Type Antibody Screen Crossmatch 10/22/18 10/22/18 10/23/18 16:20 18:50 18:45 WBC 28.2 H D RBC 2.69 L Hgb 7.8 L D Hct 23.6 L MCV 87.7 MCH 29.0 MCHC 33.1 RDW 13.3 Plt Count 228 MPV 11.0 Immature Gran % 0.7 Seg Neutrophils % 90.4 Lymphocytes % 5.1 Monocytes % 3.7 Eosinophils % 0.0 Basophils % 0.1 Neutrophils # 25.5 H Lymphocytes # 1.4 Monocytes # 1.0 Eosinophils # 0.0 Basophils # 0.0 Nucleated RBCs/100 WBC Reactive Lymphocytes Present A Platelet Estimate Normal Immature Plt Fraction PT INR APTT Fibrinogen Sodium Potassium Chloride Carbon Dioxide BUN Creatinine Est GFR ( Amer) Est GFR (Non-Af Amer) BUN/Creatinine Ratio Glucose Calculated Osmolality Uric Acid Calcium Total Bilirubin Direct Bilirubin Indirect Bilirubin AST ALT Alkaline Phosphatase Lactate Dehydrogenase Serum Total Protein Albumin Globulin Albumin/Globulin Ratio Urine Opiates Screen Ur Barbiturates Screen Ur Phencyclidine Scrn Ur Amphetamines Screen U Benzodiazepines Scrn Urine Cocaine Screen U Marijuana (THC) Screen Ur Drug Screen Interp Hep Bs Antigen Nonreactive Blood Type A POSITIVE Antibody Screen NEGATIVE Crossmatch See Detail 10/24/18 10/24/18 10/25/18 06:00 06:00 08:30 WBC 18.9 H 12.1 H RBC 2.33 L 3.01 L Hgb 6.6 L 8.7 L D Hct 20.4 L 26.9 L MCV 87.6 89.4 MCH 28.3 28.9 MCHC 32.4 32.3 RDW 13.3 13.8 Plt Count 191 90 L D MPV 10.7 10.5 Immature Gran % 1.0 3.3 Seg Neutrophils % 80.9 71.6 Lymphocytes % 10.9 16.4 Monocytes % 6.8 7.1 Eosinophils % 0.3 1.2 Basophils % 0.1 0.4 Neutrophils # 15.3 H 8.7 Lymphocytes # 2.1 2.0 Monocytes # 1.3 0.9 Eosinophils # 0.1 0.2 Basophils # 0.0 0.1 Nucleated RBCs/100 WBC 0.5 H Reactive Lymphocytes Platelet Estimate Immature Plt Fraction 6.3 H PT INR APTT Fibrinogen Sodium Potassium Chloride Carbon Dioxide BUN 8 Creatinine 0.69 Est GFR ( Amer) > 60 Est GFR (Non-Af Amer) > 60 BUN/Creatinine Ratio 12 Glucose Calculated Osmolality Uric Acid 5.6 Calcium Total Bilirubin Direct Bilirubin Indirect Bilirubin AST 50 H ALT 35 Alkaline Phosphatase Lactate Dehydrogenase 295 H Serum Total Protein Albumin Globulin Albumin/Globulin Ratio Urine Opiates Screen Ur Barbiturates Screen Ur Phencyclidine Scrn Ur Amphetamines Screen U Benzodiazepines Scrn Urine Cocaine Screen U Marijuana (THC) Screen Ur Drug Screen Interp Hep Bs Antigen Blood Type Antibody Screen Crossmatch 10/25/18 10/25/18 10/25/18 08:30 18:03 18:03 WBC 13.9 H RBC 3.10 L Hgb 9.1 L Hct 27.4 L MCV 88.4 MCH 29.4 MCHC 33.2 RDW 14.1 Plt Count 101 L MPV 10.5 Immature Gran % 2.8 Seg Neutrophils % 69.1 Lymphocytes % 19.4 Monocytes % 7.1 Eosinophils % 1.2 Basophils % 0.4 Neutrophils # 9.6 H Lymphocytes # 2.7 Monocytes # 1.0 Eosinophils # 0.2 Basophils # 0.1 Nucleated RBCs/100 WBC 0.4 H Reactive Lymphocytes Present A Platelet Estimate Decreased L Immature Plt Fraction 5.4 PT 9.7 INR 0.9 APTT Fibrinogen 504 H Sodium Potassium Chloride Carbon Dioxide BUN 9 Creatinine 0.61 Est GFR ( Amer) > 60 Est GFR (Non-Af Amer) > 60 BUN/Creatinine Ratio 15 Glucose Calculated Osmolality Uric Acid 4.9 Calcium Total Bilirubin Direct Bilirubin Indirect Bilirubin AST 122 H ALT 156 H Alkaline Phosphatase Lactate Dehydrogenase 466 H Serum Total Protein Albumin Globulin Albumin/Globulin Ratio Urine Opiates Screen Ur Barbiturates Screen Ur Phencyclidine Scrn Ur Amphetamines Screen U Benzodiazepines Scrn Urine Cocaine Screen U Marijuana (THC) Screen Ur Drug Screen Interp Hep Bs Antigen Blood Type Antibody Screen Crossmatch 10/25/18 10/25/18 10/26/18 18:03 18:03 06:24 WBC 13.0 H RBC 2.92 L Hgb 8.5 L Hct 26.1 L MCV 89.4 MCH 29.1 MCHC 32.6 RDW 13.8 Plt Count 110 L MPV 10.8 Immature Gran % 4.3 H Seg Neutrophils % 68.0 Lymphocytes % 19.1 Monocytes % 6.4 Eosinophils % 1.5 Basophils % 0.7 Neutrophils # 8.9 Lymphocytes # 2.5 Monocytes # 0.8 Eosinophils # 0.2 Basophils # 0.1 Nucleated RBCs/100 WBC 0.8 H Reactive Lymphocytes Platelet Estimate Immature Plt Fraction PT INR APTT 28.9 Fibrinogen Sodium 136 Potassium 4.0 Chloride 107 Carbon Dioxide 24 BUN 11 Creatinine 0.65 Est GFR ( Amer) > 60 Est GFR (Non-Af Amer) > 60 BUN/Creatinine Ratio 17 Glucose 101 Calculated Osmolality 282 Uric Acid Calcium 8.5 L Total Bilirubin 0.2 L Direct Bilirubin 0.0 Indirect Bilirubin 0.2 AST 78 H ALT 136 H Alkaline Phosphatase 91 Lactate Dehydrogenase Serum Total Protein 5.8 L Albumin 3.0 L Globulin 2.8 Albumin/Globulin Ratio 1.1 Urine Opiates Screen Ur Barbiturates Screen Ur Phencyclidine Scrn Ur Amphetamines Screen U Benzodiazepines Scrn Urine Cocaine Screen U Marijuana (THC) Screen Ur Drug Screen Interp Hep Bs Antigen Blood Type Antibody Screen Crossmatch 10/26/18 06:24 WBC RBC Hgb Hct MCV MCH MCHC RDW Plt Count MPV Immature Gran % Seg Neutrophils % Lymphocytes % Monocytes % Eosinophils % Basophils % Neutrophils # Lymphocytes # Monocytes # Eosinophils # Basophils # Nucleated RBCs/100 WBC Reactive Lymphocytes Platelet Estimate Immature Plt Fraction PT INR APTT Fibrinogen Sodium Potassium Chloride Carbon Dioxide BUN 10 Creatinine 0.67 Est GFR ( Amer) > 60 Est GFR (Non-Af Amer) > 60 BUN/Creatinine Ratio 15 Glucose Calculated Osmolality Uric Acid 5.9 Calcium Total Bilirubin Direct Bilirubin Indirect Bilirubin AST 51 H ALT 109 H Alkaline Phosphatase Lactate Dehydrogenase 248 Serum Total Protein Albumin Globulin Albumin/Globulin Ratio Urine Opiates Screen Ur Barbiturates Screen Ur Phencyclidine Scrn Ur Amphetamines Screen U Benzodiazepines Scrn Urine Cocaine Screen U Marijuana (THC) Screen Ur Drug Screen Interp Hep Bs Antigen Blood Type Antibody Screen Crossmatch Labs on day of discharge: Labs from last 24 hours 10/26/18 10/26/18 10/25/18 06:24 06:24 18:03 WBC 13.0 H RBC 2.92 L Hgb 8.5 L Hct 26.1 L MCV 89.4 MCH 29.1 MCHC 32.6 RDW 13.8 Plt Count 110 L MPV 10.8 Immature Gran % 4.3 H Seg Neutrophils % 68.0 Lymphocytes % 19.1 Monocytes % 6.4 Eosinophils % 1.5 Basophils % 0.7 Neutrophils # 8.9 Lymphocytes # 2.5 Monocytes # 0.8 Eosinophils # 0.2 Basophils # 0.1 Nucleated RBCs/100 WBC 0.8 H Reactive Lymphocytes Platelet Estimate Immature Plt Fraction PT INR APTT 28.9 Fibrinogen Sodium Potassium Chloride Carbon Dioxide BUN 10 Creatinine 0.67 Est GFR ( Amer) > 60 Est GFR (Non-Af Amer) > 60 BUN/Creatinine Ratio 15 Glucose Calculated Osmolality Uric Acid 5.9 Calcium Total Bilirubin Direct Bilirubin Indirect Bilirubin AST 51 H ALT 109 H Alkaline Phosphatase Lactate Dehydrogenase 248 Serum Total Protein Albumin Globulin Albumin/Globulin Ratio 10/25/18 10/25/18 10/25/18 18:03 18:03 18:03 WBC 13.9 H RBC 3.10 L Hgb 9.1 L Hct 27.4 L MCV 88.4 MCH 29.4 MCHC 33.2 RDW 14.1 Plt Count 101 L MPV 10.5 Immature Gran % 2.8 Seg Neutrophils % 69.1 Lymphocytes % 19.4 Monocytes % 7.1 Eosinophils % 1.2 Basophils % 0.4 Neutrophils # 9.6 H Lymphocytes # 2.7 Monocytes # 1.0 Eosinophils # 0.2 Basophils # 0.1 Nucleated RBCs/100 WBC 0.4 H Reactive Lymphocytes Present A Platelet Estimate Decreased L Immature Plt Fraction 5.4 PT 9.7 INR 0.9 APTT Fibrinogen 504 H Sodium 136 Potassium 4.0 Chloride 107 Carbon Dioxide 24 BUN 11 Creatinine 0.65 Est GFR ( Amer) > 60 Est GFR (Non-Af Amer) > 60 BUN/Creatinine Ratio 17 Glucose 101 Calculated Osmolality 282 Uric Acid Calcium 8.5 L Total Bilirubin 0.2 L Direct Bilirubin 0.0 Indirect Bilirubin 0.2 AST 78 H ALT 136 H Alkaline Phosphatase 91 Lactate Dehydrogenase Serum Total Protein 5.8 L Albumin 3.0 L Globulin 2.8 Albumin/Globulin Ratio 1.1 Date of admission: 10/22/18 18:17 Primary care physician: PCP NONE Consults: 10/23/18 15:33 Consult to [employer]er [CONS] Routine Comment: Vaginal delivery, consult needed Discharging clinician: Armida Kern Anticipated date of discharge: 10/26/18 - Patient Status Disposition: Home, Self-Care Condition: Good Functional capacity at discharge: independent ambulation Overall status at discharge: patient is progressing back to baseline - Discharge Instructions Instructions: Anemia (GEN), Preeclampsia and Eclampsia (DC) Follow Up With: NONE,PCP [Primary Care Provider] - Ross Govea MD [Partnered Physician] - - Diet and Activity Activity: resume usual activities as tolerated Diet: regular diet Hospital Course Reason for admission: IUP - , induction of labor, pre-eclampsia Delivery: Episiotomy: none Laceration: none Other procedures: none complications: retained placenta, transfusion Discharge diagnosis: delivery, pre-eclampsia [place] baby: female Hospital course: Delivery - Delivery Date: 10/23/18 Provider: Lydia Smith Intrapartum events: meconium Delivery induction: misoprostol Delivery augmentation: pitocin Delivery monitor: external FHT, external uterine Anesthesia: epidural Quantitated Blood Loss: 500 - (s) A Infant Delivery Date: 10/23/18 Delivery Time: 10:48 Presentation: vertex Position: MICHAEL Route of delivery: Gender: Female Viability: Viable Pounds: 4 Ounces: 11 Weight Gram: 2.12 kg at 1 minute: 8 at 5 mins: 9 Shoulder Dystocia: not encountered Specimens collected: cord blood Placenta: spontaneous Cord: nuchal cord (body, waist, and leg), 3 umbilical vessels, delivered through nuchal - Repair Episiotomy: none Laceration Description: None - Complications Delivery complications: retained placenta (Dr. Mcrae made aware - please see her note) Delivery comments: This is a 33 year old G2 now P 2 who was admitted for induction of labor secondary to severe preeclampsia. She progressed with Cytotec induction and Pitocin augmentation to the second stage of labor. She pushed for 15 minutes. Nursery and respiratory therapy were called to bedside secondary to thick meconium. She delivered a viable, female infant, "Alana" MICHAEL over an intact perineum. A nuchal cord was identified. The cord was wrapped around the 's left shoulder as well as her waist and right leg. She was delivered through. A shoulder dystocia was not encountered. The was placed on the maternal abdomen and allowed to transition spontaneously. The cord was double clamped by wilderness guide after pulsations ceased and cut by FOB. scores were 8 at 1 minute and 9 at 5 minutes. The infant weighed 4 lbs. 11 oz. (2120 g). The placented did not deliver spontaneously. 400mcg cytotec PO given and Dr. Mcrae notified after 30 minutes and to bedside. Patient was given options for placental removal. EBL was 500 mL. Mom and baby are skin to skin following delivery. Care turned over to Dr. Mcrae for placental removal. - Disposition Mom disposition: stable in PP and appropriate for discharge. Time Attestation: Total time spent providing and/or coordinating discharge services: Time Spent: Less than 30 minutes Exam - Constitutional Vitals: Temp Pulse Resp BP Pulse Ox 98.3 F 89 16 138/93 89 10/26/18 12:34 10/26/18 12:34 10/26/18 12:34 10/26/18 12:34 10/26/18 12:34 General appearance IM: A&O X 3 - Respiratory Respiratory exam: Present: CTAB - Cardiovascular Cardiovascular exam IM: Present: RRR - GI/Abdominal GI/Abdominal exam IM: soft - Uterine Tone: Firm Uterus Position: 1 Finger Below Umbilicus - Extremities Exam Extremities exam IM: Present: normal capillary refill, normal inspection - Neurological Exam Neurological exam: normal gait, oriented X3 - Psychiatric Additional comments: reports good mood
== END 2018-10-26 14:43 | disposition home or self-care (01) | DRG 805 ==
LOC: 1NENULAB → 1NENUOBS 10-23 15:30
PROVIDERS: ADMIT Advanced Practice Midwife; ATTEND Advanced Practice Midwife